=== PATIENT | female | born 1960 | race African-American/Black ===

== ENCOUNTER 2018-04-22 08:49 | Day surgery (SDC) | payer OTHER ==
[2018-04-21 14:31] VITALS: BMI 32.4
[2018-04-22 10:32] VITALS: TEMP 98.4
[2018-04-22 13:17] VITALS: BP 110/60; PULSE 58
== END 2018-04-22 12:00 | disposition home or self-care (01) ==
LOC: JASU-ENDO 08:49
PROVIDERS: ATTEND Internal Medicine Gastroenterology
PROC: 0DJD8ZZ Inspection of Lower Intestinal Tract, Via Natural or Artificial Opening Endoscopic (ICD-10-PCS; principal; 2018-04-22 09:30)
DX: Z12.11 Encounter for screening for malignant neoplasm of colon (principal)
CPT/HCPCS: 82962

== ENCOUNTER 2019-06-06 16:22 | Emergency (ER) | payer OTHER ==
[2019-06-06 16:53] VITALS: TEMP 98.1; BMI 32.4
[2019-06-06] MEDS ORDERED: MAG HYDROX/AL HYDROX/SIMETH 30 ML UNIT-DOSE CUP PO ONE (17:23)
[2019-06-06] MEDS ORDERED: FAMOTIDINE 20 MG/50 ML IVPB 20 MG/50 ML MG IVPB ONE ×2 (17:23→18:06)
[2019-06-06] MEDS ORDERED: SODIUM CHLORIDE 0.9% 500 ML INFUS.BAG IV ONE (17:25)
--- NOTE | 2019-06-06 17:43 | PDOC ---
History of Present Illness - General Chief Complaint: Headache Stated Complaint: HIGH BLOOD PRESSURE, DIZZINESS Time Seen by Provider: 06/06/19 17:10 History Source: Patient Exam Limitations: No Limitations - History of Present Illness Initial Comments: 58 y/o F, pmh of DM type 2, GERD, Migraines on sumatriptan, HLD, HTN, KARISSA, presents to the ED c/o of throat pain of one day duration that began after taking her migraine medications, accompanied by nausea and vomiting x1, weakness and sensation of hot and cold. Pt reports that she began to feel her migraines during which she took her migraine medication, sumatriptan and suddenly she began to feel nauseous, while she was at her pharmacy, where her BP was elevated to 150s systolic and she was directed to go to the ED. Currently , she report that her symptoms are improving. Admits to throat pain, abdominal pain. Denies f/c/sob, chest pain. 06/06/19 17:35 Associated Symptoms: reports: denies symptoms, malaise, nausea/vomiting, weakness. denies: chest pain, cough, diaphoresis, fever/chills, headaches, shortness of breath Past History - Past Medical History Allergies/Adverse Reactions: Allergies Allergy/AdvReac Type Severity Reaction Status Date / Time morphine Allergy Unknown Nausea Verified 06/06/19 16:56 Home Medications: Ambulatory Orders Linaclotide [Linzess] 145 mcg PO DAILY 04/21/18 Pantoprazole Sodium 40 mg PO DAILY 04/21/18 Aspirin [Lo-Dose Aspirin EC] 81 mg PO DAILY 04/22/18 Dapagliflozin Propanediol [Farxiga] 5 mg PO DAILY 04/22/18 Losartan Potassium 50 mg PO DAILY 04/22/18 K[place]-3 Fatty Acids [Kiron-3] 1,000 mg PO DAILY 04/22/18 Cardiac Disorders: (ASCAD) COPD: No DVT: No Diabetes: Yes GI Disorders: Yes (gastritis) HTN: Yes Hypercholesterolemia: Yes Kidney Stones: Yes Other medical history: Migraines - Surgical History Cholecystectomy: Yes (PARTIAL HYSTERECTOMY) - Psycho Social/Smoking Cessation Hx Smoking History: Never smoked Have you smoked in the past 12 months: No Hx Alcohol Use: No Drug/Substance Use Hx: No Substance Use Type: None Hx Substance Use Treatment: No Review of Systems - Review of Systems Able to Perform ROS?: Yes Is the patient limited Croatian proficient: No Constitutional: Yes: Symptoms Reported, Malaise, Weakness, Weight Stable. No: Chills, Diaphoresis, Fever HEENTM: Yes: Symptoms Reported, Throat Pain Respiratory: Yes: Symptoms reported. No: Cough, Shortness of Breath, Wheezing Cardiac (ROS): Yes: Symptoms Reported. No: Chest Pain, Chest Tightness ABD/GI: Yes: Symptoms Reported, Nausea, Vomiting. No: Abdominal Distended, Constipated, Diarrhea : Yes: Symptoms Reported. No: Burning, Dysuria Neurological: Yes: Symptoms reported. No: Headache, Numbness All Other Systems: Reviewed and Negative *Physical Exam - Vital Signs Last Vital Signs Temp Pulse Resp BP Pulse Ox 98.1 F 60 14 132/81 98 06/06/19 16:47 06/06/19 16:47 06/06/19 16:47 06/06/19 16:47 06/06/19 16:47 - Physical Exam General Appearance: Yes: Nourished, Appropriately Dressed HEENT: positive: EOMI, JUDAH, Normal ENT Inspection, Pharynx Normal Neck: positive: Trachea midline, Normal Thyroid, Supple Respiratory/Chest: positive: Lungs Clear, Normal Breath Sounds. negative: Crackles, Rales, Wheezing Cardiovascular: positive: Regular Rhythm, Regular Rate, S1, S2. negative: Murmur, Gallop/S3, Gallop/S4 Vascular Pulses: Dorsalis-Pedis (R): 2+, Doralis-Pedis (L): 2+ Gastrointestinal/Abdominal: positive: Normal Bowel Sounds, Tender, Soft, Tenderness (periumbical tenderness and RUQ pain). negative: Distended, Guarding , Rebound Neurologic: positive: Fully Oriented, Alert, Normal Mood/Affect ED Treatment Course - LABORATORY CBC & Chemistry Diagram: 06/06/19 17:45 06/06/19 17:45 - Medications Given in the ED: ED Medications Discontinued Medications Generic Name Dose Route Start Last Admin Trade Name Freq PRN Reason Stop Dose Admin Al Hydroxide/Mg Hydroxide 30 ml 06/06/19 17:23 06/06/19 17:34 Mylanta Oral Suspension - PO 06/06/19 17:24 30 ml ONCE ONE Administration Sodium Chloride 1,000 ml 06/06/19 17:25 06/06/19 17:33 Normal Saline - IV 06/06/19 17:26 1,000 ml ONCE ONE Administration Medical Decision Making - Medical Decision Making 58 y/o F, pmh of DM type 2, GERD, Migraines on sumatriptan, HLD, HTN, KARISSA, presents to the ED c/o of throat pain of one day duration that began after taking her migraine medications, accompanied by nausea and vomiting x1, weakness and sensation of hot and cold #Throat pain likely 2/2 to acid reflux will need to r/o Cholecystitis due to RUQ tenderness CBC, CMP, lipase RUQ U/S- Gall bladder shows no stones or signs of inflammation. No biliary dilation seen. Liver shows steatosis. Right kidney shows no hydronephrosis. Portal vein shows unremarkable venous waveform with hepatopedal flow. EKG: NSR Jun Lewisx Pepcid IVF 06/06/19 17:45 06/06/19 17:54 06/06/19 18:01 06/06/19 22:40 Discharge - Discharge Information Problems reviewed: Yes Clinical Impression/Diagnosis: Epigastric abdominal pain Acid reflux Qualifiers: Esophagitis presence: esophagitis presence not specified Qualified Code(s): K21.9 - Gastro-esophageal reflux disease without esophagitis Condition: Improved Disposition: HOME - Admission No - Follow up/Referral Referrals: Murray Nash [Primary Care Provider] - Cathryn Marley DO [Staff Physician] - - Patient Discharge Instructions Additional Instructions: You were seen in the emergency room for throat pain and stomach pain with nausea and vomiting. While in the emergency room, we evaluated you with lab work, blood work and imaging including an ultrasound of your abdomen. We found that your symptoms were likely caused by acid reflux. We gave you medications and your symptoms improved To further investigate the cause of your symptoms, please follow up with Dr. Cathryn Marley, the live in caregiver we have provided you with, within 1 week. Please also follow up with your primary care physician in 1 week Return to the emergency room if you experience worsening of your symptoms, chest pain, abdominal pain, vomiting, diarrhea or any other worsening of your symptoms. [facility] fue visto en la chandu de emergencias por dolor de garganta y dolor de estmago con nuseas y vmitos. Mientras estaba en la chandu de emergencias, lo evaluamos con anlisis de laboratorio, anlisis de zoey e imgenes, incluido un ultrasonido de cobos abdomen. Descubrimos que reji sntomas probablemente fueron causados ??por el reflujo cido. Le dimos medicamentos y reji sntomas mejoraron. Para investigar ms a fondo la causa de reji sntomas, andres un seguimiento con la Dra. Cathryn Marley, la gastroenterloga que le hemos proporcionado, dentro de 1 semana. Tambin andres un seguimiento con cobos mdico de atencin primaria en 1 semana Regrese a la chandu de emergencias si experimenta un empeoramiento de reji sntomas , dolor en el pecho, dolor abdominal, vmitos, diarrea o cualquier otro empeoramiento de reji sntomas. - Post Discharge Activity
[2019-06-06] MEDS ORDERED: ONDANSETRON 4 MG/2 ML VIAL IVPUSH ONE (17:52)
[2019-06-06] MEDS ORDERED: MAG HYDROX/AL HYDROX/SIMETH 30 ML UNIT-DOSE CUP ONE (18:05)
[2019-06-06] MEDS ORDERED: ONDANSETRON 4 MG/2 ML VIAL ONE (18:06)
[2019-06-06 18:16] LABS: BASO % 0.5 % (0-2.0); EOS % 0.7 % (0-4.5); HEMATOCRIT 42.9 % (32.4-45.2); HEMOGLOBIN 14.1 GM/dL (10.7-15.3); LYMPH % 26.4 % (8-40); MCH 29.4 pg (25.7-33.7); MCHC 32.8 g/dl (32.0-36.0); MEAN CELL VOLUME 89.8 fl (80-96); MEAN PLT VOLUME 9.8 fl (7.5-11.1); MONO % 4.6 % (3.8-10.2); NEUT % 67.8 % (42.8-82.8); PLATELET COUNT 215 K/MM3 (134-434); RBC 4.78 M/mm3 (3.60-5.2); RDW 15.1 % (11.6-15.6); WHITE BLOOD COUNT 7.8 K/mm3 (4.0-10.0)
[2019-06-06 18:42] LABS: ALBUMIN 3.9 g/dl (3.4-5.0); BILIRUBIN,TOTAL 0.4 mg/dL (0.2-1); BLOOD UREA NITROGEN 14.5 mg/dL (7-18); CALCIUM 9.5 mg/dL (8.5-10.1); CREATININE 0.8 mg/dL (0.55-1.3); TOT PROT 7.5 g/dl (6.4-8.2)
--- NOTE | 2019-06-06 19:12 | PDOC ---
Documentation entered by Lee Pena SCRIBE, acting as scribe for Antonina Lundberg MD. Antonina Lundberg MD: This documentation has been prepared by the Jean lopez Nirvannie, SCRIBE, under my direction and personally reviewed by me in its entirety. I confirm that the documentation accurately reflects all work, treatment, procedures, and medical decision making performed by me. Attending Attestation - Resident Resident Name: Christiano Patel - ED Attending Attestation I have performed the following: I have examined & evaluated the patient, The case was reviewed & discussed with the resident, I agree w/resident's findings & plan, Exceptions are as noted - HPI HPI: 06/06/19 18:01 The patient is a 58 year old female, with a significant past medical history of T2DM, HTN, HLD, GERD, KARISSA, Migraines, who presents to the emergency department with sudden onset 1 day of throat pain, nausea (one episode of emesis), and weakness. As per patient, shortly after taking her Sumatriptan for her normal migraines he began feeling throat pain, nausea, vomiting, weakness, and sensation of hot/cold. Patient notes testing her blood pressure at the pharmacy at which time it was found to be 150s systolic, prompting her arrival to the ED. She denies any focal changes in strength or sensation. She denies recent diarrhea or constipation. She denies recent dysuria, frequency, urgency or hematuria. She denies recent chest pain or shortness of breath. Allergies: Morphine Primary Care Physician: Dr. Nash - Physicial Exam PE: GENERAL: Awake, alert, and fully oriented, in no acute distress HEAD: No signs of trauma EYES: PERRLA, EOMI, sclera anicteric, conjunctiva clear ENT: Auricles normal inspection, hearing grossly normal, nares patent, oropharynx clear without exudates. Moist mucosa NECK: Normal ROM, supple, no lymphadenopathy, JVD, or masses LUNGS: Breath sounds equal, clear to auscultation bilaterally. No wheezes, and no crackles HEART: Regular rate and rhythm, normal S1 and S2, no murmurs, rubs or gallops ABDOMEN: Soft, +RUQ tenderness with guarding, normoactive bowel sounds. No rebound. No masses EXTREMITIES: Normal range of motion, no edema. No clubbing or cyanosis. No cords, erythema, or tenderness NEUROLOGICAL: Cranial nerves II through XII grossly intact. Normal speech, normal gait. Motor and sensation intact SKIN: Warm, dry, normal turgor, no rashes or lesions noted. - Medical Decision Making Pt with multiple cardiac risk factors presenting with upper chest pain radiating into the neck, N/V. Noted to have RUQ tenderness on exam. Will obtain cardiac workup, RUQ sono.
[2019-06-06 23:18] VITALS: BP 140/76; PULSE 84
--- NOTE | 2019-06-07 13:10 | EKG ---
Test Reason : Blood Pressure : / mmHG Vent. Rate : 063 BPM Atrial Rate : 063 BPM P-R Int : 156 ms QRS Dur : 084 ms QT Int : 436 ms P-R-T Axes : 018 -05 000 degrees QTc Int : 446 ms NORMAL SINUS RHYTHM NORMAL ECG WHEN COMPARED WITH ECG OF 21-MAR-2014 13:12, QT HAS LENGTHENED Confirmed by KATIE PAGE MD ([id number]) on 06/07/2019 1:10:23 PM Referred By: Confirmed By:KATIE PAGE MD
== END 2019-06-06 23:18 | disposition home or self-care (01) ==
LOC: JER 16:22
PROC: 3E033GC Introduction of Other Therapeutic Substance into Peripheral Vein, Percutaneous Approach (ICD-10-PCS; principal; 2019-06-06)
PROC: 3E033GC Introduction of Other Therapeutic Substance into Peripheral Vein, Percutaneous Approach (ICD-10-PCS; 2019-06-06)
DX: K21.9 Gastro-esophageal reflux disease without esophagitis (principal); R10.13 Epigastric pain; I10 Essential (primary) hypertension; E78.5 Hyperlipidemia, unspecified; E11.9 Type 2 diabetes mellitus without complications; G47.33 Obstructive sleep apnea (adult) (pediatric); Z79.84 Long term (current) use of oral hypoglycemic drugs; G43.909 Migraine, unspecified, not intractable, without status migrainosus; Z88.5 Allergy status to narcotic agent
CPT/HCPCS: 36415; 76705-TC; 80053; 82550; 83690; 84484; 85025; 87070; 87880; 93005; 93010; 96365; 96375; 99282-25

== ENCOUNTER 2020-01-14 13:03 | Emergency (ER) | payer OTHER ==
[2020-01-14 13:23] VITALS: BP 114/72; PULSE 72; TEMP 97.9; BMI 333.6
--- NOTE | 2020-01-14 14:06 | PDOC ---
History of Present Illness - General Chief Complaint: Vaginal Sxs Stated Complaint: VAGINAL DISCHARGE Time Seen by Provider: 01/14/20 13:27 History Source: Patient Exam Limitations: No Limitations - History of Present Illness Travel History: No Initial Comments: 01/14/20 14:06 59-year-old female presents to ED with complaints of vaginal itching worse at night for the past week associated with white discharge noted on underwear. Patient also states mild burning with urination but denies abdominal or back pain. Patient denies regular vaginal bleeding and states is sexually active requesting STD work-up. patient with history of diabetes and has not checked her sugar and a few months. Timing/Duration: reports: constant Quality: reports: mild, other (Itching) Aggravating Factors: improves with: None Alleviating Factors: improves with: None Past History - Travel History Traveled outside of the country in the last 30 days: No Close contact w/someone who was outside of country & ill: No - Medical History Allergies/Adverse Reactions: Allergies Allergy/AdvReac Type Severity Reaction Status Date / Time morphine Allergy Unknown Nausea Verified 01/14/20 13:20 Home Medications: Ambulatory Orders Linaclotide [Linzess] 145 mcg PO DAILY 04/21/18 Pantoprazole Sodium 40 mg PO DAILY 04/21/18 Aspirin [Lo-Dose Aspirin EC] 81 mg PO DAILY 04/22/18 Dapagliflozin Propanediol [Farxiga] 5 mg PO DAILY 04/22/18 Losartan Potassium 50 mg PO DAILY 04/22/18 [place]-3 Fatty Acids [[place]-3] 1,000 mg PO DAILY 04/22/18 Miconazole Nitrate [Miconazole-7] 45 gm VG HS #1 cream.appl 01/14/20 Cardiac Disorders: (ASCAD) COPD: No DVT: No Diabetes: Yes GI Disorders: Yes (gastritis) HTN: Yes Hypercholesterolemia: Yes Kidney Stones: Yes - Surgical History Cholecystectomy: Yes (PARTIAL HYSTERECTOMY) - Reproductive History Is Patient Now?: No - Psycho-Social/Smoking History Patient Lives Alone: No Lives with/in: spouse/SO Smoking History: Never smoked Have you smoked in the past 12 months: No Information on smoking cessation initiated: No - Substance Abuse Hx (Audit-C & DAST Scrn) How often the patient has a drink containing alcohol: Never Score: In Men: 4 or > Positive; In Women: 3 or > Positive: 0 Screen Result (Pos requires Nsg. Audit-10AR): Negative In the last yr the pt used illegal drug/Rx for NonMed reason: No Score: Yes response is considered Positive: 0 Screen Result (Positive result requires Nsg. DAST-10): Negative Abd/GI Specific PMHX - Complaint Specific PMHX Colitis: No Diverticulitis: No Gall Bladder Disease: No GERD: Yes Review of Systems - Review of Systems Able to Perform ROS?: No Is the patient limited Serbian proficient: No Constitutional: No: Symptoms Reported HEENTM: No: Symptoms Reported Respiratory: No: Symptoms reported Cardiac (ROS): No: Symptoms Reported ABD/GI: No: Symptoms Reported : No: Symptoms Reported Musculoskeletal: No: Symptoms Reported Integumentary: No: Symptoms Reported Neurological: No: Symptoms reported Endocrine: No: Symptoms Reported Hematologic/Lymphatic: No: Symptoms Reported *Physical Exam - Vital Signs Last Vital Signs Temp Pulse Resp BP Pulse Ox 97.9 F 72 17 114/72 99 01/14/20 13:21 01/14/20 13:21 01/14/20 13:21 01/14/20 13:21 01/14/20 13:21 - Physical Exam General Appearance: Yes: Nourished, Appropriately Dressed. No: Apparent Distress HEENT: negative: Pale Conjunctivae Respiratory/Chest: positive: Lungs Clear, Normal Breath Sounds. negative: Respiratory Distress, Accessory Muscle Use Cardiovascular: positive: Regular Rhythm, Regular Rate. negative: Murmur Female Pelvic Exam: positive: normal external exam (Noted excoriation to labia majora), discharge (Nonodorous curd-like white discharge). negative: adnexal tenderness, vaginal bleeding Gastrointestinal/Abdominal: positive: Soft. negative: Tenderness Musculoskeletal: negative: CVA Tenderness (Chloride) Extremity: positive: Normal Inspection Integumentary: positive: Normal Color, Warm, Moist Neurologic: positive: Motor Strength 5/5 (ambulatory) Medical Decision Making - Medical Decision Making 01/14/20 14:11 Complaint: Vaginal itching and burning along with discharge. Exam: Patient excoriation to labia majora with white curd-like discharge. No abdominal pain no CVA tenderness. Vital signs stable. Plan: Urine analysis urine culture, GC chlamydia, BGM to assess for uncontrolled diabetes 01/14/20 14:13 BGM 64 we will discharge patient home With miconazole gel/cream along with Monistat 01/14/20 14:43 Laboratory Tests 01/14/20 01/14/20 13:50 13:50 Urine Glucose (UA) 3+ H Urine Ketones Negative Urine Blood Negative Urine Nitrite Negative Urine Bilirubin Negative Urine Urobilinogen 0.2 Ur Leukocyte Esterase Negative C. trachomatis (TYRELL) Pending N. gonorrhoeae (TYRELL) Pending Discharge - Discharge Information Problems reviewed: Yes Clinical Impression/Diagnosis: Yeast vaginitis Condition: Good Disposition: HOME - Additional Discharge Information Prescriptions: Miconazole Nitrate [Miconazole-7] 45 gm VG HS #1 cream.appl - Follow up/Referral Referrals: Murray Nash [Primary Care Provider] - - Patient Discharge Instructions Patient Printed Discharge Instructions: DI for Vaginal Yeast Infection Additional Instructions: Please take medication as prescribed. Please wear cotton underwear and clean from front to back. Drink plenty of water and you will be contacted if urine culture or other testing are abnormal - Post Discharge Activity
[2020-01-14 14:24] LABS: PH,URINE 5.5 (5.0-8.0); URINE APPEARANCE CLEAR; URINE BILIRUBIN NEGATIVE (NEGATIVE); URINE COLOR YELLOW; URINE GLUCOSE (UA) 3+ (NEGATIVE); URINE KETONE NEGATIVE (NEGATIVE); URINE LEUK ESTERASE NEGATIVE (NEGATIVE); URINE NITRITE NEGATIVE (NEGATIVE); URINE PROTEIN NEGATIVE (NEGATIVE); URINE UROBILINOGEN 0.2 mg/dL (0.2-1.0)
== END 2020-01-14 14:49 | disposition home or self-care (01) ==
LOC: JERFT 13:03
DX: B37.3 Candidiasis of vulva and vagina (principal)
CPT/HCPCS: 36415; 81003; 82962; 87086; 87491; 87591; 99283-25

== ENCOUNTER 2020-06-17 12:04 | Emergency (ER) | payer OTHER ==
[2020-06-17 12:14] VITALS: BMI 32.8
[2020-06-17] MEDS ORDERED: MAG HYDROX/AL HYDROX/SIMETH -MYLANTA- ORAL SUSPENSION PO ONE (13:34)
[2020-06-17] MEDS ORDERED: SODIUM CHLORIDE 1,000 ML IV STA (13:34)
[2020-06-17] MEDS ORDERED: FAMOTIDINE 20 MG/50 ML IVPB 20 MG/50 ML MG IVPB ONE ×2 (13:35→13:37)
[2020-06-17] MEDS ORDERED: ACETAMINOPHEN 1000 MG/100 ML VIAL (NON FORMULARY) IVPB ONE (13:49)
[2020-06-17] MEDS ORDERED: ACETAMINOPHEN INJECTION 100 ML IVPB ONE (13:52)
[2020-06-17 14:03] LABS: HEMATOCRIT 39.8 % (32.4-45.2); HEMOGLOBIN 13.1 GM/dL (10.7-15.3); MCH 30.2 pg (25.7-33.7); MCHC 32.8 g/dl (32.0-36.0); MEAN CELL VOLUME 92.2 fl (80-96); MEAN PLT VOLUME 9.5 fl (7.5-11.1); PLATELET COUNT 231 K/MM3 (134-434); RBC 4.32 M/mm3 (3.60-5.2); RDW 14.8 % (11.6-15.6); WHITE BLOOD COUNT 6.6 K/mm3 (4.0-10.0)
[2020-06-17 14:10] LABS: INR 1.03 (0.83-1.09); PROTHROMBIN TIME (PATIENT) 12.6 SEC (9.7-13.0)
[2020-06-17 14:13] LABS: ACTIVATED PTT 28.4 SECONDS (25.2-36.5)
[2020-06-17 14:26] LABS: ALBUMIN 3.7 g/dl (3.4-5.0); CALCIUM 9.7 mg/dL (8.5-10.1)
[2020-06-17 14:27] LABS: BLOOD UREA NITROGEN 15.2 mg/dL (7-18)
[2020-06-17 14:30] LABS: CREATININE 0.7 mg/dL (0.55-1.3)
[2020-06-17 14:31] LABS: BILIRUBIN,TOTAL 0.4 mg/dL (0.2-1)
[2020-06-17 15:45] LABS: URINE APPEARANCE CLEAR; URINE BILIRUBIN NEGATIVE (NEGATIVE); URINE COLOR YELLOW; URINE GLUCOSE (UA) TRACE (NEGATIVE); URINE KETONE NEGATIVE (NEGATIVE); URINE LEUK ESTERASE NEGATIVE (NEGATIVE); URINE NITRITE NEGATIVE (NEGATIVE); URINE PROTEIN NEGATIVE (NEGATIVE); URINE UROBILINOGEN 0.2 mg/dL (0.2-1.0)
[2020-06-17 17:00] VITALS: PULSE 60
[2020-06-17 20:44] VITALS: BP 126/77; TEMP 97.8
== END 2020-06-17 20:58 | disposition home or self-care (01) ==
LOC: JER 12:04
PROC: 3E033NZ Introduction of Analgesics, Hypnotics, Sedatives into Peripheral Vein, Percutaneous Approach (ICD-10-PCS; principal; 2020-06-17)
PROC: 3E033GC Introduction of Other Therapeutic Substance into Peripheral Vein, Percutaneous Approach (ICD-10-PCS; 2020-06-17)
PROC: 3E0337Z Introduction of Electrolytic and Water Balance Substance into Peripheral Vein, Percutaneous Approach (ICD-10-PCS; 2020-06-17)
DX: K62.5 Hemorrhage of anus and rectum (principal); R10.9 Unspecified abdominal pain
CPT/HCPCS: 36415; 74177-TC; 80053; 81003; 82272; 82550; 83605; 83690; 84484; 85027; 85610; 85730; 86850; 86900; 86901; 87086; 93005; 93010; 96361; 96365; 96375; 99285-25; J0131; Q9967

== ENCOUNTER 2021-04-24 08:46 | Emergency (ER) | payer OTHER ==
[2021-04-24 09:24] VITALS: TEMP 97.8; BMI 33.1
[2021-04-24] MEDS ORDERED: FAMOTIDINE 20 MG/50 ML IVPB 20 MG/50 ML MG IVPB ONE ×2 (09:51→10:00)
[2021-04-24] MEDS ORDERED: ACETAMINOPHEN 1000 MG/100 ML VIAL IVPB ONE (09:51)
[2021-04-24] MEDS ORDERED: METOCLOPRAMIDE HCL INJECTION 10 MG/2 ML VIAL IVPB ONE (09:51)
[2021-04-24] MEDS ORDERED: SODIUM CHLORIDE 1,000 ML IV STA (09:51)
[2021-04-24] MEDS ORDERED: METOCLOPRAMIDE HCL INJECTION 10 MG/2 ML VIAL ONE (09:59)
[2021-04-24] MEDS ORDERED: ACETAMINOPHEN INJECTION 100 ML IVPB ONE (10:00)
[2021-04-24 10:34] LABS: BASO % 0.7 % (0-2.0); EOS % 1.9 % (0-4.5); HEMATOCRIT 40.9 % (32.4-45.2); HEMOGLOBIN 13.6 GM/dL (10.7-15.3); LYMPH % 38.7 % (8-40); MCH 29.5 pg (25.7-33.7); MCHC 33.2 g/dl (32.0-36.0); MEAN CELL VOLUME 88.8 fl (80-96); MEAN PLT VOLUME 9.5 fl (7.5-11.1); MONO % 6.7 % (3.8-10.2); PLATELET COUNT 235 10^3/uL (134-434); RBC 4.61 M/mm3 (3.60-5.2); RDW 14.8 % (11.6-15.6); WHITE BLOOD COUNT 5.7 K/mm3 (4.0-10.0)
[2021-04-24 11:32] LABS: CALCIUM 9.4 mg/dL (8.5-10.1)
[2021-04-24 11:33] LABS: ALBUMIN 3.9 g/dl (3.4-5.0); BLOOD UREA NITROGEN 16.6 mg/dL (7-18)
[2021-04-24 11:36] LABS: CREATININE 0.8 mg/dL (0.55-1.3)
[2021-04-24 11:37] LABS: BILIRUBIN,TOTAL 0.9 mg/dL (0.2-1); TOT PROT 7.4 g/dl (6.4-8.2)
[2021-04-24 12:39] VITALS: BP 112/81; PULSE 77
== END 2021-04-24 12:39 | disposition home or self-care (01) ==
LOC: JER 08:46
PROC: 3E0333Z Introduction of Anti-inflammatory into Peripheral Vein, Percutaneous Approach (ICD-10-PCS; principal; 2021-04-24)
PROC: 3E033GC Introduction of Other Therapeutic Substance into Peripheral Vein, Percutaneous Approach (ICD-10-PCS; 2021-04-24)
PROC: 3E033GC Introduction of Other Therapeutic Substance into Peripheral Vein, Percutaneous Approach (ICD-10-PCS; 2021-04-24)
PROC: 3E0337Z Introduction of Electrolytic and Water Balance Substance into Peripheral Vein, Percutaneous Approach (ICD-10-PCS; 2021-04-24)
DX: K21.9 Gastro-esophageal reflux disease without esophagitis (principal)
CPT/HCPCS: 36415; 76705-TC; 80053; 83690; 85025; 96361; 96374; 96375; 99284-25; J0131

== ENCOUNTER 2021-07-18 12:14 | Emergency (ER) | payer OTHER ==
[2021-07-18 12:46] VITALS: BP 158/99; PULSE 70; TEMP 98.7; BMI 34.0
[2021-07-18] MEDS ORDERED: ACETAMINOPHEN 1000 MG/100 ML BAG IVPB ONE (12:51)
[2021-07-18] MEDS ORDERED: SODIUM CHLORIDE 0.9% 500 ML INFUS.BAG IV ONE (12:51)
[2021-07-18] MEDS ORDERED: ACETAMINOPHEN INJECTION 100 ML IVPB ONE (13:13)
[2021-07-18 13:20] LABS: BASO % 0.9 % (0-2.0); EOS % 1.7 % (0-4.5); HEMATOCRIT 39.5 % (32.4-45.2); MCH 28.8 pg (25.7-33.7); MEAN CELL VOLUME 87.3 fl (80-96); MEAN PLT VOLUME 8.8 fl (7.5-11.1); MONO % 7.3 % (3.8-10.2); NEUT % 40.1 % (42.8-82.8); PLATELET COUNT 282 10^3/uL (134-434); RBC 4.52 M/mm3 (3.60-5.2); RDW 15.3 % (11.6-15.6); WHITE BLOOD COUNT 4.7 K/mm3 (4.0-10.0)
[2021-07-18 13:47] LABS: CALCIUM 9.6 mg/dL (8.5-10.1)
[2021-07-18 13:48] LABS: ACTIVATED PTT 33.8 SECONDS (25.2-36.5); BLOOD UREA NITROGEN 19.1 mg/dL (7-18); INR 1.12 (0.83-1.09); MAGNESIUM 2.5 mg/dL (1.8-2.4); PROTHROMBIN TIME (PATIENT) 12.9 SEC (9.7-13.0)
[2021-07-18 13:51] LABS: CREATININE 0.8 mg/dL (0.55-1.3)
[2021-07-18 13:52] LABS: BILIRUBIN,TOTAL 0.6 mg/dL (0.2-1); TOT PROT 7.3 g/dl (6.4-8.2)
[2021-07-18] MEDS ORDERED: FAMOTIDINE 10 MG TABLET PO ONE (14:10)
[2021-07-18] MEDS ORDERED: MAG HYDROX/AL HYDROX/SIMETH 30 ML UNIT-DOSE CUP PO ONE (14:10)
[2021-07-18] MEDS ORDERED: MAG HYDROX/AL HYDROX/SIMETH 30 ML UNIT-DOSE CUP ONE (14:23)
[2021-07-18] MEDS ORDERED: FAMOTIDINE 20 MG TABLET ONE (14:23)
[2021-07-18 14:57] LABS: PH,URINE 8.5 (5.0-8.0); URINE APPEARANCE CLEAR; URINE BILIRUBIN NEGATIVE (NEGATIVE); URINE COLOR YELLOW; URINE GLUCOSE (UA) NEGATIVE (NEGATIVE); URINE KETONE NEGATIVE (NEGATIVE); URINE LEUK ESTERASE NEGATIVE (NEGATIVE); URINE NITRITE NEGATIVE (NEGATIVE); URINE PROTEIN NEGATIVE (NEGATIVE); URINE UROBILINOGEN 0.2 mg/dL (0.2-1.0)
[2021-07-18] MEDS ORDERED: LIDOCAINE 5% TOPICAL PATCH TP ONE (17:24)
[2021-07-18] MEDS ORDERED: LIDOCAINE 5% TOPICAL PATCH ONE (18:04)
[2021-07-18] MEDS ORDERED: LIDOCAINE PATCH REMOVAL MC SCH (22:00)
== END 2021-07-18 18:00 | disposition home or self-care (01) ==
LOC: JER 12:14
PROC: 3E0333Z Introduction of Anti-inflammatory into Peripheral Vein, Percutaneous Approach (ICD-10-PCS; principal; 2021-07-18)
DX: R10.13 Epigastric pain (principal); K62.5 Hemorrhage of anus and rectum
CPT/HCPCS: 36415; 71045-TC-FY; 74177-TC; 80053; 81003; 82272; 82962; 83690; 83735; 84484; 85025; 85610; 85730; 87086; 93005; 93010; 96374; 99285-25; Q9967

== ENCOUNTER 2021-12-23 14:16 | Emergency (ER) | payer OTHER ==
[2021-12-23 14:38] VITALS: BP 155/92; RESP 18; TEMP 98.5; BMI 32.1
[2021-12-23] MEDS ORDERED: ACETAMINOPHEN 1000 MG/100 ML BAG IVPB ONE (14:55)
[2021-12-23] MEDS ORDERED: ACETAMINOPHEN INJECTION 100 ML IVPB ONE (15:01)
[2021-12-23 15:16] LABS: BASO % 0.6 % (0-2.0); EOS % 1.2 % (0-4.5); HEMATOCRIT 37.1 % (32.4-45.2); HEMOGLOBIN 12.5 GM/dL (10.7-15.3); LYMPH % 39.1 % (8-40); MCHC 33.8 g/dl (32.0-36.0); MEAN PLT VOLUME 8.9 fl (7.5-11.1); MONO % 6.1 % (3.8-10.2); PLATELET COUNT 255 10^3/uL (134-434); RBC 4.16 M/mm3 (3.60-5.2); RDW 14.5 % (11.6-15.6); WHITE BLOOD COUNT 6.5 K/mm3 (4.0-10.0)
[2021-12-23 15:38] LABS: BLOOD UREA NITROGEN 19.8 mg/dL (7-18); CALCIUM 8.9 mg/dL (8.5-10.1)
[2021-12-23 15:39] LABS: ALBUMIN 3.7 g/dl (3.4-5.0)
[2021-12-23 15:42] LABS: CREATININE 0.7 mg/dL (0.55-1.3)
[2021-12-23 15:43] LABS: BILIRUBIN,TOTAL 0.5 mg/dL (0.2-1); TOT PROT 6.9 g/dl (6.4-8.2)
[2021-12-23] MEDS ORDERED: FAMOTIDINE 10 MG TABLET PO ONE (16:03)
[2021-12-23] MEDS ORDERED: MAG HYDROX/AL HYDROX/SIMETH -MYLANTA- ORAL SUSPENSION PO ONE (16:03)
[2021-12-23] MEDS ORDERED: MAG HYDROX/AL HYDROX/SIMETH 30 ML UNIT-DOSE CUP ONE (16:17)
[2021-12-23] MEDS ORDERED: FAMOTIDINE 10 MG TABLET ONE (16:17)
[2021-12-23 16:27] LABS: EPI CELLS 26 /uL (0-25.1); HYALINE CASTS 1 /uL (0-3.1); URINE APPEARANCE CLEAR; URINE BACTERIA 271 /uL (0-1359); URINE BILIRUBIN NEGATIVE (NEGATIVE); URINE COLOR YELLOW; URINE GLUCOSE (UA) NEGATIVE (NEGATIVE); URINE KETONE NEGATIVE (NEGATIVE); URINE LEUK ESTERASE TRACE (NEGATIVE); URINE NITRITE NEGATIVE (NEGATIVE); URINE PROTEIN NEGATIVE (NEGATIVE); URINE RBC 9 /uL (0-23.9); URINE WBC 8 /uL (0-25.8)
[2021-12-23 17:38] VITALS: PULSE 61
== END 2021-12-23 17:49 | disposition home or self-care (01) ==
LOC: JER 14:16
PROC: 3E033GC Introduction of Other Therapeutic Substance into Peripheral Vein, Percutaneous Approach (ICD-10-PCS; principal; 2021-12-23)
DX: U07.1 COVID-19 (principal); R10.13 Epigastric pain
CPT/HCPCS: 0241U-QW; 36415; 80053; 81003; 85025; 87086; 93005; 93010; 96374; 99284-25

== ENCOUNTER 2022-05-22 09:16 | Emergency (ER) | payer OTHER ==
[2022-05-22 09:21] VITALS: BP 118/77; PULSE 90; RESP 18; TEMP 98.2; BMI 31.8
[2022-05-22] MEDS ORDERED: MAG HYDROX/AL HYDROX/SIMETH -MYLANTA- ORAL SUSPENSION PO ONE (10:43)
[2022-05-22] MEDS ORDERED: FAMOTIDINE 10 MG TABLET PO ONE (10:43)
[2022-05-22] MEDS ORDERED: ACETAMINOPHEN 500 MG TABLET (FP) PO ONE (10:43)
[2022-05-22] MEDS ORDERED: ACETAMINOPHEN 325 MG TABLET (FP) ONE (10:53)
[2022-05-22] MEDS ORDERED: MAG HYDROX/AL HYDROX/SIMETH 30 ML UNIT-DOSE CUP ONE (10:54)
[2022-05-22] MEDS ORDERED: FAMOTIDINE 10 MG TABLET ONE (10:54)
== END 2022-05-22 17:42 | disposition home or self-care (01) ==
LOC: JER 09:16
DX: J06.9 Acute upper respiratory infection, unspecified (principal)
CPT/HCPCS: 0241U-QW; 76705-TC; 99284-25

== ENCOUNTER 2022-08-10 11:04 | Emergency (ER) | payer OTHER ==
[2022-08-10 11:11] VITALS: TEMP 98.1; BMI 32.5
[2022-08-10] MEDS ORDERED: METOCLOPRAMIDE HCL INJECTION 10 MG/2 ML VIAL IVPB ONE (12:38)
[2022-08-10] MEDS ORDERED: SODIUM CHLORIDE 0.9% 500 ML INFUS.BAG IV ONE (12:38)
[2022-08-10] MEDS ORDERED: METOCLOPRAMIDE HCL INJECTION 10 MG/2 ML VIAL ONE (12:56)
[2022-08-10 13:32] LABS: BASO % 1.1 % (0-2.0); HEMATOCRIT 39.2 % (32.4-45.2); HEMOGLOBIN 12.6 GM/dL (10.7-15.3); LYMPH % 41.8 % (8-40); MCH 28.9 pg (25.7-33.7); MCHC 32.2 g/dl (32.0-36.0); MEAN CELL VOLUME 89.9 fl (80-96); MEAN PLT VOLUME 9.7 fl (7.5-11.1); MONO % 7.6 % (3.8-10.2); NEUT % 47.5 % (42.8-82.8); PLATELET COUNT 208 10^3/uL (134-434); RBC 4.36 M/mm3 (3.60-5.2); RDW 15.6 % (11.6-15.6); WHITE BLOOD COUNT 5.9 K/mm3 (4.0-10.0)
[2022-08-10 14:01] LABS: CALCIUM 8.8 mg/dL (8.5-10.1)
[2022-08-10 14:02] LABS: ALBUMIN 3.5 g/dl (3.4-5.0); BLOOD UREA NITROGEN 16.2 mg/dL (7-18)
[2022-08-10 14:05] LABS: CREATININE 0.7 mg/dL (0.55-1.3)
[2022-08-10 14:06] LABS: BILIRUBIN,TOTAL 0.7 mg/dL (0.2-1); TOT PROT 6.7 g/dl (6.4-8.2)
[2022-08-10 16:03] VITALS: BP 129/77; PULSE 80; RESP 18
== END 2022-08-10 17:10 | disposition home or self-care (01) ==
LOC: JER 11:04
PROC: 3E033GC Introduction of Other Therapeutic Substance into Peripheral Vein, Percutaneous Approach (ICD-10-PCS; principal; 2022-08-10)
DX: R51.9 Headache, unspecified (principal)
CPT/HCPCS: 36415; 80053; 82962; 85025; 96374; 99284-25

== ENCOUNTER 2023-04-17 09:36 | Emergency (ER) | payer OTHER ==
[2023-04-17 09:52] VITALS: TEMP 98.1; BMI 32.9
[2023-04-17] MEDS ORDERED: METOCLOPRAMIDE HCL INJECTION 10 MG/2 ML VIAL IVPB ONE (10:20)
[2023-04-17] MEDS ORDERED: ACETAMINOPHEN 325 MG TABLET (FP) PO ONE (10:20)
[2023-04-17] MEDS ORDERED: LACTATED RINGERS SOLUTION 1000 ML INFUS.BAG IV ONE (10:21)
[2023-04-17] MEDS ORDERED: METOCLOPRAMIDE HCL INJECTION 10 MG/2 ML VIAL ONE (10:26)
[2023-04-17] MEDS ORDERED: ACETAMINOPHEN 325 MG TABLET (FP) ONE (10:26)
[2023-04-17 11:02] LABS: EOS % 2.3 % (0-4.5); HEMOGLOBIN 13.3 GM/dL (10.7-15.3); LYMPH % 36.6 % (8-40); MCH 28.5 pg (25.7-33.7); MCHC 31.6 g/dl (32.0-36.0); MEAN CELL VOLUME 90.2 fl (80-96); MEAN PLT VOLUME 9.7 fl (7.5-11.1); MONO % 7.6 % (3.8-10.2); NEUT % 52.5 % (42.8-82.8); PLATELET COUNT 261 10^3/uL (134-434); RBC 4.65 M/mm3 (3.60-5.2); RDW 14.1 % (11.6-15.6); WHITE BLOOD COUNT 6.5 K/mm3 (4.0-10.0)
[2023-04-17 11:22] LABS: POTASSIUM 4.5 mmol/L (3.5-5.1)
[2023-04-17 11:24] LABS: ALBUMIN 3.8 g/dl (3.4-5.0); BLOOD UREA NITROGEN 19.9 mg/dL (7-18); CALCIUM 9.3 mg/dL (8.5-10.1); MAGNESIUM 2.5 mg/dL (1.8-2.4)
[2023-04-17 11:29] LABS: BILIRUBIN,TOTAL 0.7 mg/dL (0.2-1); CREATININE 0.9 mg/dL (0.55-1.3); TOT PROT 7.2 g/dl (6.4-8.2)
[2023-04-17] MEDS ORDERED: DEXAMETHASONE SOD PHOSPHATE 10 MG/1 ML VIAL IVPUSH ONE (11:38)
[2023-04-17] MEDS ORDERED: DEXAMETHASONE SOD PHOSPHATE 10 MG/1 ML VIAL ONE (11:41)
[2023-04-17 11:59] VITALS: BP 129/70; PULSE 64; RESP 20
== END 2023-04-17 11:59 | disposition home or self-care (01) ==
LOC: JER 09:36
PROC: 3E033NZ Introduction of Analgesics, Hypnotics, Sedatives into Peripheral Vein, Percutaneous Approach (ICD-10-PCS; principal; 2023-04-17)
PROC: 3E033GC Introduction of Other Therapeutic Substance into Peripheral Vein, Percutaneous Approach (ICD-10-PCS; 2023-04-17)
DX: M54.2 Cervicalgia (principal); G43.909 Migraine, unspecified, not intractable, without status migrainosus
CPT/HCPCS: 36415; 80053; 83735; 85025; 99284-25; J1100

== ENCOUNTER 2023-08-21 16:27 | Observation (INO) | payer OTHER ==
[2023-08-21] MEDS ORDERED: MAG HYDROX/AL HYDROX/SIMETH 30 ML UNIT-DOSE CUP ONE (17:30)
[2023-08-21] MEDS ORDERED: FAMOTIDINE 20 MG/50 ML IVPB 20 MG/50 ML MG IVPB ONE (17:30)
[2023-08-21] MEDS ORDERED: ONDANSETRON 4 MG/2 ML VIAL ONE (17:30)
[2023-08-21] MEDS: SODIUM CHLORIDE 0.9% 500 ML INFUS.BAG IV ONE (18:20)
[2023-08-21] MEDS: MAG HYDROX/AL HYDROX/SIMETH 30 ML UNIT-DOSE CUP PO ONE (18:20)
[2023-08-21] MEDS: FAMOTIDINE 20 MG/50 ML IVPB 20 MG/50 ML MG IVPB ONE (18:20)
[2023-08-21] MEDS: ONDANSETRON 4 MG/2 ML VIAL IVPUSH ONE (18:21)
[2023-08-21 18:28] LABS: BASO % 0.5 % (0-2.0); EOS % 2.3 % (0-4.5); HEMATOCRIT 41.1 % (32.4-45.2); HEMOGLOBIN 13.5 GM/dL (10.7-15.3); LYMPH % 42.6 % (8-40); MCH 28.6 pg (25.7-33.7); MEAN CELL VOLUME 86.7 fl (80-96); MEAN PLT VOLUME 8.9 fl (7.5-11.1); MONO % 6.8 % (3.8-10.2); NEUT % 47.8 % (42.8-82.8); PLATELET COUNT 208 10^3/uL (134-434); RBC 4.74 M/mm3 (3.60-5.2); RDW 16.9 % (11.6-15.6)
[2023-08-21 18:58] LABS: POTASSIUM 3.9 mmol/L (3.5-5.1)
[2023-08-21 19:01] LABS: ALBUMIN 3.4 g/dl (3.4-5.0); BLOOD UREA NITROGEN 15.8 mg/dL (7-18)
[2023-08-21 19:04] LABS: CREATININE 0.6 mg/dL (0.55-1.3)
[2023-08-21 19:06] LABS: BILIRUBIN,TOTAL 0.7 mg/dL (0.2-1)
[2023-08-21 19:37] LABS: URINE APPEARANCE CLEAR; URINE BILIRUBIN NEGATIVE (NEGATIVE); URINE COLOR YELLOW; URINE GLUCOSE (UA) 2+ (NEGATIVE); URINE KETONE NEGATIVE (NEGATIVE); URINE LEUK ESTERASE NEGATIVE (NEGATIVE); URINE NITRITE NEGATIVE (NEGATIVE); URINE PROTEIN NEGATIVE (NEGATIVE)
[2023-08-21] MEDS ORDERED: ACETAMINOPHEN INJECTION 100 ML IVPB ONE (23:43)
[2023-08-21] MEDS: ACETAMINOPHEN 1000 MG/100 ML BAG IVPB ONE (23:47)
[2023-08-22] MEDS: ACETAMINOPHEN 1000 MG/100 ML BAG IVPB PRN (05:24)
[2023-08-22 06:40] LABS: BASO % 0.5 % (0-2.0); EOS % 2.9 % (0-4.5); HEMATOCRIT 37.2 % (32.4-45.2); HEMOGLOBIN 11.9 GM/dL (10.7-15.3); LYMPH % 43.8 % (8-40); MCH 28.2 pg (25.7-33.7); MCHC 32.1 g/dl (32.0-36.0); MEAN CELL VOLUME 87.9 fl (80-96); MEAN PLT VOLUME 9.2 fl (7.5-11.1); MONO % 7.1 % (3.8-10.2); NEUT % 45.7 % (42.8-82.8); PLATELET COUNT 183 10^3/uL (134-434); RBC 4.23 M/mm3 (3.60-5.2); RDW 16.8 % (11.6-15.6); WHITE BLOOD COUNT 5.9 K/mm3 (4.0-10.0)
[2023-08-22 07:06] LABS: BLOOD UREA NITROGEN 14.3 mg/dL (7-18)
[2023-08-22 07:07] LABS: CALCIUM 8.8 mg/dL (8.5-10.1)
[2023-08-22 07:09] LABS: CREATININE 0.7 mg/dL (0.55-1.3)
[2023-08-22] MEDS ORDERED: PANTOPRAZOLE SODIUM 40 MG VIAL ONE (09:35)
[2023-08-22] MEDS: PANTOPRAZOLE SODIUM 40 MG VIAL IVPUSH SCH (09:49)
[2023-08-22 16:40] VITALS: BMI 34.9
[2023-08-22] MEDS: INSULIN ASPART SLIDING SCALE (NOVOLOG) 1 VIAL SQ SCH (21:18)
[2023-08-23] MEDS: LOSARTAN POTASSIUM 25 MG TABLET PO SCH (09:48)
[2023-08-23 13:35] VITALS: BP 130/82; PULSE 74; RESP 20; TEMP 98.4
[2023-08-23] MEDS: ACETAMINOPHEN 500 MG TABLET (FP) PO ONE (14:59)
== END 2023-08-23 15:20 | disposition home or self-care (01) ==
LOC: JER 16:27 → JERBED 23:50 → J4W 08-22 15:52
PROVIDERS: ADMIT Family Medicine; ATTEND Family Medicine
PROC: 3E033NZ Introduction of Analgesics, Hypnotics, Sedatives into Peripheral Vein, Percutaneous Approach (ICD-10-PCS; 2023-08-21)
PROC: 3E033GC Introduction of Other Therapeutic Substance into Peripheral Vein, Percutaneous Approach (ICD-10-PCS; 2023-08-21)
PROC: 3E033GC Introduction of Other Therapeutic Substance into Peripheral Vein, Percutaneous Approach (ICD-10-PCS; 2023-08-21)
PROC: 3E0337Z Introduction of Electrolytic and Water Balance Substance into Peripheral Vein, Percutaneous Approach (ICD-10-PCS; 2023-08-21)
PROC: 0DB68ZX Excision of Stomach, Via Natural or Artificial Opening Endoscopic, Diagnostic (ICD-10-PCS; principal; 2023-08-22 13:00)
DX: R07.89 Other chest pain (principal); K21.9 Gastro-esophageal reflux disease without esophagitis; R10.13 Epigastric pain; E78.5 Hyperlipidemia, unspecified; I25.10 Atherosclerotic heart disease of native coronary artery without angina pectoris; E11.9 Type 2 diabetes mellitus without complications; Z90.49 Acquired absence of other specified parts of digestive tract; K29.70 Gastritis, unspecified, without bleeding; K76.0 Fatty (change of) liver, not elsewhere classified; E66.9 Obesity, unspecified; Z88.5 Allergy status to narcotic agent
CPT/HCPCS: 36415; 74177-TC; 80048; 80053; 81003; 82962; 83690; 84484; 85025; 87086; 88305-TC; 88341-TC; 88342-TC; 93005; 93010; 96365; 96375; 96376; 99285-25; G0378; J0131; Q9967

== ENCOUNTER 2024-09-19 13:11 | Emergency (ER) | payer MEDICARE, OTHER ==
[2024-09-19 13:18] VITALS: BP 105/71; PULSE 83; RESP 16; TEMP 98.2; BMI 31.8
[2024-09-19] MEDS ORDERED: ACETAMINOPHEN 500 MG TABLET (FP) ONE (14:12)
[2024-09-19] MEDS: ACETAMINOPHEN 500 MG TABLET (FP) PO ONE (14:13)
== END 2024-09-19 15:28 | disposition home or self-care (01) ==
LOC: JERFT 13:11
DX: M65.842 Other synovitis and tenosynovitis, left hand (principal)
CPT/HCPCS: 73110-TC-LT-FY; 73130-TC-LT-FY; 99283-25

== ENCOUNTER 2024-11-07 14:50 | Emergency (ER) | payer MEDICARE, OTHER ==
[2024-11-07 14:58] VITALS: BP 130/80; PULSE 61; RESP 18; TEMP 98.2; BMI 32.4
[2024-11-07] MEDS ORDERED: METOCLOPRAMIDE HCL INJECTION 10 MG/2 ML VIAL ONE (16:11)
[2024-11-07] MEDS ORDERED: ACETAMINOPHEN INJECTION 100 ML ONE (16:11)
[2024-11-07] MEDS: ACETAMINOPHEN 1000 MG/100 ML BAG IVPB ONE (16:27)
[2024-11-07] MEDS: SODIUM CHLORIDE 0.9% 500 ML INFUS.BAG IV ONE (16:27)
[2024-11-07] MEDS: METOCLOPRAMIDE HCL INJECTION 10 MG/2 ML VIAL IVPB ONE (16:27)
== END 2024-11-07 18:33 | disposition home or self-care (01) ==
LOC: JER 14:50
PROC: 3E033NZ Introduction of Analgesics, Hypnotics, Sedatives into Peripheral Vein, Percutaneous Approach (ICD-10-PCS; principal; 2024-11-07)
PROC: 3E033GC Introduction of Other Therapeutic Substance into Peripheral Vein, Percutaneous Approach (ICD-10-PCS; 2024-11-07)
DX: H11.31 Conjunctival hemorrhage, right eye (principal); G43.909 Migraine, unspecified, not intractable, without status migrainosus; H53.141 Visual discomfort, right eye; F40.298 Other specified phobia
CPT/HCPCS: 70450-TC; 96374; 96375; 99285-25